=== PATIENT | male | born 1960 | race Asian ===

== ENCOUNTER → 2023-02-02 | Emergency (ER) | payer MEDICAID ==
[~2023-02-02] VITALS: Ht 185.4 cm; Wt 107.0 kg
[~2023-02-02] MED LIST: CEFTRIAXONE /D5W 50ML IVPB **ER PYXIS IV ONE; CEFTRIAXONE 1 G in IV DEXTROSE 5% 50 ML IV ONE; CEPH500T PO; HYDR-3980 PO; HYDROMORPHONE 1 MG/1 ML DISP.SYRIN IV ONE; HYDROMORPHONE 1 MG/1 ML DISP.SYRIN ONE; LIDOCAINE 1%-EPI 1:100,000 20 ML VIAL ONE; LORAZEPAM 2 MG/1 ML VIAL IV ONE; LORAZEPAM 2 MG/1 ML VIAL ONE; ONDA4TAB11 PO; ONDANSETRON 4 MG/2 ML VIAL IV ONE; ONDANSETRON 4 MG/2 ML VIAL ONE; SODIUM BICARBONATE 4.2 % (NEUT) 5 ML VIAL ONE; SULF1TAB48 PO
[2023-02-02 02:50] VITALS: BP 140/79; O2SAT 98
== END | disposition home or self-care (01) ==
LOC: ER 00:40
DX: L02.31 Cutaneous abscess of buttock (principal)
CPT/HCPCS: 99284; 96365; 96375; J0696; J3490 ×2; J2060; J2405; J1170; A4606; A4663